=== PATIENT | female | born 1990 | race American Indian/Alaskan Native ===

== ENCOUNTER 2018-11-02 08:28 | Emergency (ER) | payer OTHER, MEDICARE ==
[2018-11-02 08:34] VITALS: BP 120/67
[2018-11-02 09:17] LABS: Basophils # (Auto) 0.1 K/mm3 (0.0-0.1); Basophils % (Auto) 1.5 % (0.0-1.8); Eosinophils # (Auto) 0.2 K/mm3 (0.0-0.4); Hematocrit 34.7 % (30.3-42.9); Hemoglobin 11.8 gm/dl (10.1-14.3); Lymphocytes % (Auto) 22.7 % (13.4-35.0); Mean Corpuscular HGB Conc 34 % (30-34); Mean Corpuscular Volume 87 fl (79-97); Monocytes # (Auto) 0.5 K/mm3 (0.0-0.8); Monocytes % (Auto) 5.7 % (0.0-7.3); Platelet Count 343 K/mm3 (140-440); Red Cell Distribution Width 13.6 % (13.2-15.2)
--- NOTE | 2018-11-02 09:21 | Emergency Department Report ---
ED Female HPI - General Chief complaint: Vaginal Bleeding Stated complaint: 5WKS /SPOTTING/CRAMPING Time Seen by Provider: 11/02/18 09:15 Source: patient Mode of arrival: Ambulatory Limitations: No Limitations - History of Present Illness Initial comments: This is a 28-year-old 02 on at approximately 5 or gestation states that since her period was 09/24/2018 presents to ED complaining of mild low pelvic cramping pain and some vaginal spotting that began yesterday. Patient states today she noticed more vaginal bleeding upon arriving to work. Patient states pelvic cramping mildly resolved. But still bleeding. She states she has an appointment at [facility] 11/17/2018 She denies dysuria, fever, chills, nausea vomiting or any of the symptoms. MD Complaint: vaginal bleeding - Related Data Allergies Allergy/AdvReac Type Severity Reaction Status Date / Time No Known Allergies Allergy Unverified 11/02/18 08:30 ED Review of Systems ROS: Stated complaint: 5WKS /SPOTTING/CRAMPING Other details as noted in HPI Comment: All other systems reviewed and negative ED Physical Exam - General Limitations: No Limitations General appearance: alert, in no apparent distress - Head Head exam: Present: atraumatic, normocephalic - Eye Eye exam: Present: normal appearance - ENT ENT exam: Present: mucous membranes moist - Neck Neck exam: Present: normal inspection - Respiratory Respiratory exam: Present: normal lung sounds bilaterally. Absent: respiratory distress - Cardiovascular Cardiovascular Exam: Present: regular rate, normal rhythm. Absent: systolic murmur, diastolic murmur, rubs, gallop - GI/Abdominal GI/Abdominal exam: Present: soft, normal bowel sounds. Absent: distended, tenderness, guarding - Extremities Exam Extremities exam: Present: normal inspection - Back Exam Back exam: Present: normal inspection - Neurological Exam Neurological exam: Present: alert, oriented X3 - Psychiatric Psychiatric exam: Present: normal affect, normal mood - Skin Skin exam: Present: warm, dry, intact, normal color. Absent: rash ED Course Vital Signs 11/02/18 11/02/18 08:32 08:34 Temperature 98.2 F Pulse Rate 75 Respiratory 16 Rate Blood Pressure 120/67 O2 Sat by Pulse 97 Oximetry ED Medical Decision Making - Lab Data Result diagrams: 11/02/18 08:53 - Radiology Data Radiology results: report reviewed, image reviewed ULTRASOUND OB LESS THAN 14 WEEKS FETUS ULTRASOUND OB TRANSVAGINAL HISTORY: Vaginal bleeding FINDINGS: Transabdominal and transvaginal imaging was performed. The uterus measures 8.1 x 4.4 x 5.1 cm. No obvious uterine mass. The endometrium measures 8 mm. There is a tiny cystic structure within the endometrium measuring an average of 3 mm. This could represent a very early gestational sac estimated at 5 weeks, 0 days. No pole, yolk sac or heart tones could be detected. The left ovary is unremarkable. The right ovary contains a 1.5 cm simple cyst. IMPRESSION: There is a tiny cystic structure in the endometrial canal as described above. This probably represents a very early intrauterine although no pole or heart rate could be demonstrated at this time. An endometrial cyst could also be considered. Close interval followup and quantitative beta hCG levels are recommended. Transcribed By: TTR Dictated By: YOCASTA HAIDER JR, MD Electronically Authenticated By: YOCASTA HAIDER JR, MD Signed Date/Time: 11/02/18 1138 - Medical Decision Making 28-year-old female presents to ED with vaginal bleeding and ED course: Pt received ultra sound, CBC, urinalysis, test and quantitative ED All labs within normal limits, quantitative elevated matching gestation age Patient states that bleeding is resolved when she is went into the bathroom to check Patient is followed by an [employer] [employer] [facility] Ultrasound shows no intrauterine as this could be signs of early See reported above Vital signs normalized patient is in no acute distress. I discussed with the patient if follow-up with her [employer] [facility]. I discussed all labs and ultrasound findings with the patient. I discussed with the patient that he if bleeding worsens or new symptoms develop to return to ED immediately Critical care attestation.: If time is entered above; I have spent that time in minutes in the direct care of this critically ill patient, excluding procedure time. ED Disposition Clinical Impression: Vaginal bleeding in Disposition: DC-01 TO HOME OR SELFCARE Is pt being admited?: No Does the pt Need Aspirin: No Condition: Stable Instructions: Threatened Miscarriage (ED), (ED) Additional Instructions: Make sure to follow up with the primary care physician as discussed. Take Tylenol as needed for pain and cramping. If bleeding worsens please return to ED immediately. Follow-up with [facility] for quantitative on If you have any worsening symptoms or develop new symptoms please return to ED immediately. Referrals: YUMIKO STEIN MD [Primary Care Provider] - 3-5 Days Forms: Work/School Release Form(ED) Time of Disposition: 12:01
[2018-11-02 10:11] LABS: Bilirubin,Urine NEG (Negative); Blood,Urine LG (Negative); Color,Urine Yellow (Yellow); Protein,Urine <15 mg/dL mg/dL (Negative); Urobilinogen,Urine < 2.0 mg/dL (<2.0); WBC,Urine < 1.0 /HPF (0.0-6.0)
--- NOTE | 2018-11-02 11:43 | Ultrasound Report ---
ULTRASOUND OB LESS THAN 14 WEEKS FETUS ULTRASOUND OB TRANSVAGINAL HISTORY: Vaginal bleeding FINDINGS: Transabdominal and transvaginal imaging was performed. The uterus measures 8.1 x 4.4 x 5.1 cm. No obvious uterine mass. The endometrium measures 8 mm. There is a tiny cystic structure within the endometrium measuring an average of 3 mm. This could represent a very early gestational sac estimated at 5 weeks, 0 days. No pole, yolk sac or heart tones could be detected. The left ovary is unremarkable. The right ovary contains a 1.5 cm simple cyst. IMPRESSION: There is a tiny cystic structure in the endometrial canal as described above. This probably represents a very early intrauterine although no pole or heart rate could be demonstrated at this time. An endometrial cyst could also be considered. Close interval followup and quantitative beta hCG levels are recommended.
== END 2018-11-02 12:20 | disposition home or self-care (01) ==
LOC: ED 08:28 → EEVIPCON 08:28 → ED 12:20
DX: O46.91 Antepartum hemorrhage, unspecified, first trimester (principal); Z3A.01 Less than 8 weeks gestation of pregnancy
CPT/HCPCS: 36415; 76801; 76817; 81001; 84702; 85025; 86900; 86901; 99284